=== PATIENT | male | born 1990 | race Two or more races ===

== ENCOUNTER 2019-11-01 09:35 | Inpatient (IN) | payer SELFPAY ==
[~2019-11-01] VITALS: Ht 175.3 cm; Wt 104.7 kg
[2019-11-01] MEDS ORDERED: DOXYCYCLINE 100MG/250ML 250 ML IV ONE (10:30)
[2019-11-01] MEDS ORDERED: DexAMETHasone SOD PHOS 10MG/1ML VIAL INJ IV ONE (10:30)
[2019-11-01 11:25] LABS: Basophils # (auto) 0 10 ^3/uL (0-0.2); Basophils % (auto) 0.2 % (0.0-2.0); Eosinophils # (auto) 0 10 ^3/uL (0-0.8); Eosinophils % (auto) 0.2 % (0.0-7.0); Hematocrit 44.7 % (41.0-53.0); Hemoglobin 14.7 g/dL (13.5-17.5); Lymphocytes # (auto) 1.4 10 ^3/uL (0.4-5.4); Lymphocytes % (auto) 25.7 % (10.0-50.0); Mean Corpuscular Hemoglobin 28.2 pg (28.0-32.0); Mean Corpuscular Hgb Conc. 32.9 g/dL (32.0-36.0); Mean Corpuscular Volume 85.6 fL (80.0-100.0); Monocytes # (auto) 0.7 10 ^3/uL (0-1.3); Monocytes % (auto) 11.8 % (0.0-12.0); Neutrophils # (auto) 3.4 10 ^3/uL (1.6-8.6); Neutrophils % (auto) 62.1 % (37.0-80.0); Nucleated Red Blood Cells % 0.1 %; Platelet Count (auto) 245 10^3/uL (140-450); Red Blood Cells 5.22 10^6/uL (4.5-5.90); Red Cell Distribution Width 13.6 % (11.8-14.3); White Blood Cell 5.5 10^3/uL (4.4-10.8)
[2019-11-01 11:44] LABS: Albumin 3.1 g/dL (3.4-5.0); Calcium 8.6 mg/dL (8.5-10.1)
[2019-11-01 11:47] LABS: BUN/Creatinine Ratio 13.5; Bilirubin, Total 0.7 mg/dL (0.2-1.0); Total Protein 7.1 g/dL (6.4-8.2)
[2019-11-01 11:57] LABS: CRP High Sensitivity 8.28 mg/dL (< 0.3)
[2019-11-01 12:01] LABS: Potassium 2.9 mmol/L (3.5-5.1)
[2019-11-01] MEDS ORDERED: SODIUM CHLORIDE 0.9% 1,000 ML IV SCH (12:47)
[2019-11-01] MEDS ORDERED: NITROGLYCERIN 0.4 MG SL TAB SL PRN (13:00)
[2019-11-01] MEDS ORDERED: HYDROcodone-ACET 5/325MG TAB PO PRN (13:00)
[2019-11-01] MEDS ORDERED: ACETAMINOPHEN 500 MG TAB PO PRN (13:00)
[2019-11-01] MEDS ORDERED: ONDANSETRON HCL 4 MG/2 ML VIAL IV PRN (13:00)
[2019-11-01] MEDS ORDERED: POTASSIUM CHL 20 Meq TABLET PO ONE (13:00)
[2019-11-01] MEDS ORDERED: DOCUSATE SOD 100 MG CAP PO PRN (13:00)
[2019-11-01] MEDS ORDERED: LORazepam 0.5 MG TAB PO PRN (13:00)
[2019-11-01] MEDS ORDERED: ACETAMINOPHEN 325 MG TAB PO PRN ×2 (13:00→17:15)
[2019-11-01] MEDS ORDERED: MORPHINE SULF INJ 2 MG/ML SYRINGE 1ML IV PRN ×2 (13:00)
[2019-11-01 13:23] LABS: Cholesterol 91 mg/dL (< 200)
[2019-11-01 13:27] LABS: HDL Cholesterol 22 mg/dL (40-59); LDL Cholesterol 61 mg/dL (< 100); Triglycerides 127 mg/dL (< 150)
[2019-11-01] MEDS: POTASSIUM CHL 20MEQ/100ML 100 ML IV SCH ×2 (14:00→15:24)
[2019-11-01] MEDS: ALBUTEROL SULF HFA 90MCG INH 200DOSE IN SCH ×2 (15:10→22:00)
[2019-11-01 18:00] VITALS: BP 118/61
[2019-11-01] MEDS ORDERED: POTASSIUM CHL 20MEQ/100ML 100 ML IV ONE (18:00)
[2019-11-01] MEDS: FUROSEMIDE 20 MG/2 ML VIAL IV SCH (18:23)
[2019-11-01 19:29] VITALS: BP 118/61
--- NOTE | 2019-11-01 19:30 | NUR ---
Opening Shift Note Assumed care of patient, awake and alert. No S/S of distress/SOB or pain. Instructed on POC and to call for assist PRN. Bed is in lowest locked position with bed rails up x2 and call light is within reach.
[2019-11-01] MEDS: DOXYCYCLINE 100MG/250ML 250 ML IV SCH (21:55)
[2019-11-01 22:00] VITALS: BP 117/72
[2019-11-02 01:35] LABS: Urine Bacteria NONE SEEN /hpf (None Seen); Urine Blood Negative /uL (Negative); Urine Specific Gravity 1.008 (1.001-1.035); Urine WBC 1 /hpf (0 - 3)
[2019-11-02 01:45] LABS: Alcohol, Urine < 3.0 mg/dL (0-10); Amphetamine Screen, Urine NEGATIVE (NEGATIVE); Barbiturate Scree,Urine NEGATIVE (NEGATIVE); Benzodiazephine Screen, Urine NEGATIVE (NEGATIVE); Cannabinoid Screen, Urine NEGATIVE (NEGATIVE); Cocaine Screen, Urine NEGATIVE (NEGATIVE); Opiate Scree,Urine NEGATIVE (NEGATIVE); Phencyclidine Screen, Urine NEGATIVE (NEGATIVE)
[2019-11-02 05:00] VITALS: BP 119/65
[2019-11-02] MEDS: FUROSEMIDE 20 MG/2 ML VIAL IV SCH ×2 (05:59→17:16)
[2019-11-02 06:56] LABS: Hematocrit 43.2 % (41.0-53.0); Hemoglobin 14.5 g/dL (13.5-17.5); Mean Corpuscular Hemoglobin 28.9 pg (28.0-32.0); Mean Corpuscular Hgb Conc. 33.7 g/dL (32.0-36.0); Mean Corpuscular Volume 85.8 fL (80.0-100.0); Platelet Count (auto) 320 10^3/uL (140-450); Red Blood Cells 5.03 10^6/uL (4.5-5.90); Red Cell Distribution Width 14.2 % (11.8-14.3); White Blood Cell 6.5 10^3/uL (4.4-10.8)
[2019-11-02 06:57] LABS: Albumin 2.8 g/dL (3.4-5.0); Calcium 8.4 mg/dL (8.5-10.1); Potassium 3.6 mmol/L (3.5-5.1)
[2019-11-02 06:59] LABS: BUN/Creatinine Ratio 12.6; Bilirubin, Total 0.5 mg/dL (0.2-1.0)
[2019-11-02 07:02] LABS: Basophils % (manual) 0 (0.0-2.0); Blast Cells 0; Eosinophils % (manual) 0 (0-7); Metamyelocytes % 0; Myelocytes % 0; Promyelocytes % 0; Reactive Lymphocytes 0
[2019-11-02] MEDS: ALBUTEROL SULF HFA 90MCG INH 200DOSE IN SCH ×3 (07:33→21:23)
--- NOTE | 2019-11-02 08:39 | NUR ---
OPENING SHIFT NOTE Resumed care of patient. Patient is awake and A&OX4. PT is on 14L O2 via Oxymizer. No S/S of distress. Bed locked, in lowest position, call light within reach, side rails up x2, bed alarm on for safety. Will continue to monitor for changes Q1hr and PRN.
[2019-11-02 09:00] VITALS: BP 129/80
[2019-11-02 09:09] LABS: Band Neutrophils % (manual) 8; Lymphocytes % (manual) 20 (10.0-50.0); Monocytes % (manual) 13 (0-12)
[2019-11-02] MEDS ORDERED: ENOXAPARIN SOD 40 MG/0.4 ML SYRINGE SC SCH (10:00)
[2019-11-02] MEDS: ZINC SULFATE 220mg CAP or TAB PO SCH (10:14)
[2019-11-02] MEDS: ASCORBIC ACID 1,000 MG TAB PO SCH (10:14)
[2019-11-02] MEDS: DexAMETHasone SOD PHOS 10MG/1ML VIAL INJ IV SCH (10:14)
[2019-11-02] MEDS: DOXYCYCLINE 100MG/250ML 250 ML IV SCH ×2 (10:14→21:38)
[2019-11-02] MEDS: CHOLECALCIFEROL (VITD3) 2,000 UNIT CAP PO SCH (10:14)
[2019-11-02] MEDS: POTASSIUM CHL 20 Meq TABLET PO SCH (10:15)
[2019-11-02 13:09] VITALS: BP 124/76
--- NOTE | 2019-11-02 14:20 | NUR ---
MD SPOKE TO PT REGARDING TREATMENT WITH REMDESIVIR. PT STATED HE HAD FURTHER QUESTIONS. AFTER SPEAKING WITH MD AGAIN, PT DECIDED TO NOT USE REMDESIVIR AT THIS TIME.
[2019-11-02 15:36] LABS: Hemoglobin 15.5 g/dL (13.5-17.5); Mean Corpuscular Hemoglobin 28.3 pg (28.0-32.0); Mean Corpuscular Hgb Conc. 32.9 g/dL (32.0-36.0); Platelet Count (auto) 378 10^3/uL (140-450); Red Blood Cells 5.46 10^6/uL (4.5-5.90); Red Cell Distribution Width 14.3 % (11.8-14.3); White Blood Cell 8.8 10^3/uL (4.4-10.8)
[2019-11-02 15:51] LABS: BUN/Creatinine Ratio 13.6
[2019-11-02 15:59] LABS: Basophils % (manual) 0 (0.0-2.0); Blast Cells 0; Eosinophils % (manual) 0 (0-7); Myelocytes % 0; Promyelocytes % 0; Reactive Lymphocytes 0
--- NOTE | 2019-11-02 16:25 | NUR ---
RT EDUCATED PT ABOUT LAYING PRONE. PT ACKNOWLEDGES. SAID HE WILL LAY IN PRONE POSITION LATER.
[2019-11-02 16:30] LABS: Band Neutrophils % (manual) 9; Lymphocytes % (manual) 16 (10.0-50.0); Metamyelocytes % 1; Monocytes % (manual) 9 (0-12)
[2019-11-02 17:28] VITALS: BP 140/67
[2019-11-02 17:30] VITALS: BP 140/67
[2019-11-02] MEDS: ENOXAPARIN SOD 100 MG/1 ML SYRINGE SC SCH (21:40)
[2019-11-02 22:00] VITALS: BP 116/60
[2019-11-03 05:00] VITALS: BP 118/73
[2019-11-03] MEDS: FUROSEMIDE 20 MG/2 ML VIAL IV SCH ×2 (05:39→18:29)
--- NOTE | 2019-11-03 07:56 | NUR ---
OPENING SHIFT NOTE Resumed care of patient. Patient is awake and A&OX4. PT is on 11L O2 via Oxymizer. No S/S of distress. Bed locked, in lowest position, call light within reach, side rails up x2, bed alarm on for safety. Will continue to monitor for changes Q1hr and PRN.
[2019-11-03] MEDS: ALBUTEROL SULF HFA 90MCG INH 200DOSE IN SCH ×3 (08:00→23:08)
[2019-11-03 09:00] VITALS: BP 117/61
[2019-11-03] MEDS: DOXYCYCLINE 100MG/250ML 250 ML IV SCH ×2 (09:49→22:10)
[2019-11-03] MEDS: ENOXAPARIN SOD 100 MG/1 ML SYRINGE SC SCH ×2 (09:49→22:11)
[2019-11-03] MEDS: DexAMETHasone SOD PHOS 10MG/1ML VIAL INJ IV SCH (09:49)
[2019-11-03] MEDS: CHOLECALCIFEROL (VITD3) 2,000 UNIT CAP PO SCH (09:50)
[2019-11-03] MEDS: POTASSIUM CHL 20 Meq TABLET PO SCH (09:50)
[2019-11-03] MEDS: ZINC SULFATE 220mg CAP or TAB PO SCH (09:50)
[2019-11-03] MEDS: ASCORBIC ACID 1,000 MG TAB PO SCH (09:50)
[2019-11-03 13:00] VITALS: BP 116/55
[2019-11-03 17:23] VITALS: BP 107/58
[2019-11-03 22:21] VITALS: BP 113/57
[2019-11-04 05:00] VITALS: BP 112/62
[2019-11-04] MEDS: FUROSEMIDE 20 MG/2 ML VIAL IV SCH ×2 (06:15→17:55)
[2019-11-04] MEDS: ALBUTEROL SULF HFA 90MCG INH 200DOSE IN SCH ×3 (07:53→23:22)
--- NOTE | 2019-11-04 07:53 | NUR ---
RT NOTE: FLOW TITRATED TO 8L OXYMIZER. SPO2 HOLDING AT 95%. WILL CONTINUE TO MONITOR.
[2019-11-04 07:59] LABS: Basophils # (auto) 0 10 ^3/uL (0-0.2); Basophils % (auto) 0.3 % (0.0-2.0); Eosinophils # (auto) 0 10 ^3/uL (0-0.8); Eosinophils % (auto) 0.3 % (0.0-7.0); Hematocrit 46.1 % (41.0-53.0); Hemoglobin 15.2 g/dL (13.5-17.5); Lymphocytes # (auto) 3.1 10 ^3/uL (0.4-5.4); Lymphocytes % (auto) 25.9 % (10.0-50.0); Mean Corpuscular Hemoglobin 28.4 pg (28.0-32.0); Mean Corpuscular Hgb Conc. 32.9 g/dL (32.0-36.0); Mean Corpuscular Volume 86.2 fL (80.0-100.0); Monocytes % (auto) 8.5 % (0.0-12.0); Neutrophils # (auto) 7.9 10 ^3/uL (1.6-8.6); Nucleated Red Blood Cells % 0.1 %; Platelet Count (auto) 454 10^3/uL (140-450); Red Blood Cells 5.34 10^6/uL (4.5-5.90); Red Cell Distribution Width 14.5 % (11.8-14.3); White Blood Cell 12.1 10^3/uL (4.4-10.8)
[2019-11-04 08:12] LABS: BUN/Creatinine Ratio 18.9; Calcium 8.5 mg/dL (8.5-10.1); Potassium 3.6 mmol/L (3.5-5.1)
[2019-11-04 09:00] VITALS: BP 90/49
[2019-11-04] MEDS: DexAMETHasone SOD PHOS 10MG/1ML VIAL INJ IV SCH (10:35)
[2019-11-04] MEDS: DOXYCYCLINE 100MG/250ML 250 ML IV SCH ×2 (10:35→22:16)
[2019-11-04] MEDS: ZINC SULFATE 220mg CAP or TAB PO SCH (10:36)
[2019-11-04] MEDS: CHOLECALCIFEROL (VITD3) 2,000 UNIT CAP PO SCH (10:36)
[2019-11-04] MEDS: POTASSIUM CHL 20 Meq TABLET PO SCH (10:36)
[2019-11-04] MEDS: ASCORBIC ACID 1,000 MG TAB PO SCH (10:36)
[2019-11-04] MEDS: ENOXAPARIN SOD 100 MG/1 ML SYRINGE SC SCH ×2 (10:36→22:16)
[2019-11-04 13:30] VITALS: BP 95/56
--- NOTE | 2019-11-04 14:33 | NUR ---
Est energy needs [id number] kcal (14-18 kcal/kg BW 107kg) Est protein needs 73-95g (1-1.3g/kg IBW 72.7kg) Will reassess prn. Addendum: 11/04/19 at [address] Amended: Links added.
[2019-11-04 17:12] VITALS: BP 101/53
--- NOTE | 2019-11-04 20:50 | NUR ---
Patient was satting at 95% on 4L NC. He was titrated down to 2L NC. Currently at 93%. Will continue to monitor.
[2019-11-04 22:00] VITALS: BP 110/57
--- NOTE | 2019-11-04 22:37 | NUR ---
Paged hospitalist to try and obtain rapid covid test. Awaiting callback.
--- NOTE | 2019-11-05 00:19 | NUR ---
Paged hospitalist again. Awaiting callback.
--- NOTE | 2019-11-05 00:49 | NUR ---
Hospitalist called and said no to the emily antigen test but agreed to have the novel coronavirus testing. Will place appropriate order.
[2019-11-05 02:07] VITALS: BP 110/57
[2019-11-05 05:00] VITALS: BP 124/73
[2019-11-05] MEDS: FUROSEMIDE 20 MG/2 ML VIAL IV SCH ×2 (06:42→18:38)
[2019-11-05] MEDS: ALBUTEROL SULF HFA 90MCG INH 200DOSE IN SCH ×3 (07:33→23:13)
[2019-11-05 08:18] LABS: Mean Corpuscular Hemoglobin 28.2 pg (28.0-32.0); Mean Corpuscular Volume 86.9 fL (80.0-100.0)
[2019-11-05 08:19] LABS: Hematocrit 47.3 % (41.0-53.0); Hemoglobin 15.3 g/dL (13.5-17.5); Mean Corpuscular Hgb Conc. 32.4 g/dL (32.0-36.0); Platelet Count (auto) 510 10^3/uL (140-450); Red Blood Cells 5.45 10^6/uL (4.5-5.90); Red Cell Distribution Width 14.1 % (11.8-14.3); White Blood Cell 13.1 10^3/uL (4.4-10.8)
[2019-11-05 08:22] LABS: Basophils % (manual) 0 (0.0-2.0); Blast Cells 0; Eosinophils % (manual) 0 (0-7); Promyelocytes % 0; Reactive Lymphocytes 0
[2019-11-05 08:25] LABS: Albumin 3.1 g/dL (3.4-5.0); Calcium 8.6 mg/dL (8.5-10.1); Potassium 3.5 mmol/L (3.5-5.1)
[2019-11-05 08:29] LABS: BUN/Creatinine Ratio 18.4; Bilirubin, Total 0.7 mg/dL (0.2-1.0); Total Protein 7.4 g/dL (6.4-8.2)
[2019-11-05 09:00] VITALS: BP 103/62
[2019-11-05] MEDS: DexAMETHasone SOD PHOS 10MG/1ML VIAL INJ IV SCH (09:49)
[2019-11-05] MEDS: ZINC SULFATE 220mg CAP or TAB PO SCH (09:49)
[2019-11-05] MEDS: DOXYCYCLINE 100MG/250ML 250 ML IV SCH ×2 (09:49→21:20)
[2019-11-05] MEDS: ASCORBIC ACID 1,000 MG TAB PO SCH (09:49)
[2019-11-05] MEDS: CHOLECALCIFEROL (VITD3) 2,000 UNIT CAP PO SCH (09:50)
[2019-11-05] MEDS: ENOXAPARIN SOD 100 MG/1 ML SYRINGE SC SCH (09:50)
[2019-11-05] MEDS: POTASSIUM CHL 20 Meq TABLET PO SCH (09:50)
[2019-11-05 11:41] LABS: Band Neutrophils % (manual) 7; Lymphocytes % (manual) 33 (10.0-50.0); Metamyelocytes % 4; Monocytes % (manual) 8 (0-12); Myelocytes % 1
[2019-11-05 13:00] VITALS: BP 107/68
[2019-11-05] MEDS ORDERED: ENOXAPARIN SOD 40 MG/0.4 ML SYRINGE SC ONE (15:00)
[2019-11-05 17:00] VITALS: BP 129/81
--- NOTE | 2019-11-05 21:00 | NUR ---
PT TAKEN OFF O2 AT THIS TIME. O2 SATS REMAIN IN THE MID 90S. WILL CONTINUE TO MONITOR.
[2019-11-05 22:00] VITALS: BP 107/62
[2019-11-06 04:51] VITALS: BP 105/60
[2019-11-06] MEDS: FUROSEMIDE 20 MG/2 ML VIAL IV SCH (05:36)
[2019-11-06] MEDS: ALBUTEROL SULF HFA 90MCG INH 200DOSE IN SCH (07:10)
[2019-11-06] MEDS: DexAMETHasone SOD PHOS 10MG/1ML VIAL INJ IV SCH (08:53)
[2019-11-06] MEDS: POTASSIUM CHL 20 Meq TABLET PO SCH (08:54)
[2019-11-06] MEDS: DOXYCYCLINE 100MG/250ML 250 ML IV SCH (08:54)
[2019-11-06] MEDS: ASCORBIC ACID 1,000 MG TAB PO SCH (08:55)
[2019-11-06] MEDS: ZINC SULFATE 220mg CAP or TAB PO SCH (08:55)
[2019-11-06] MEDS: CHOLECALCIFEROL (VITD3) 2,000 UNIT CAP PO SCH (08:55)
[2019-11-06 09:00] VITALS: BP 104/58
[2019-11-06] MEDS ORDERED: DOXY-286 PO (11:11)
[2019-11-06] MEDS ORDERED: DEX4T PO (11:11)
[2019-11-06] MEDS ORDERED: ASCO10003 PO (11:11)
[2019-11-06] MEDS ORDERED: CHOL1CAP47 PO (11:11)
[2019-11-06 13:00] VITALS: BP 104/74
[2019-11-06 13:24] VITALS: BP 105/60
--- NOTE | 2019-11-06 13:57 | NUR ---
PATIENT EDUCATED ON DISCHARGE INSTRUCTIONS AND FOLLOW UP APPOINTMENT. PATIENT VERBALIZED UNDERSTANDING. PATIENT GIVEN PRESCRIPTIONS FROM THE [facility]
== END 2019-11-06 14:20 | disposition home or self-care (01) | DRG 177 ==
LOC: ER 09:35 → TELE 09:36 → TELE-EAST 17:00
PROVIDERS: ADMIT Hospitalist; ATTEND Internal Medicine Pulmonary Disease
DX: U07.1 COVID-19 (principal); J12.89 Other viral pneumonia; E44.1 Mild protein-calorie malnutrition; E87.1 Hypo-osmolality and hyponatremia; E66.01 Morbid (severe) obesity due to excess calories; E87.6 Hypokalemia; K75.9 Inflammatory liver disease, unspecified; K76.0 Fatty (change of) liver, not elsewhere classified; Z68.34 Body mass index [BMI] 34.0-34.9, adult
CPT/HCPCS: 36415; 71045; 80048; 80053; 80061; 80307; 81001; 82728; 83036; 83605; 83615; 83735; 83880; 84443; 84484; 85007; 85025; 85027; 85379; 86141; 87040; 87086; 93005; 93970; 94640; 96365; 96367; 96375; G0378; J1100; J3480; J3490

== ENCOUNTER 2020-07-26 22:32 | Emergency (ER) | payer SELFPAY ==
[~2020-07-26] VITALS: Ht 175.3 cm; Wt 122.5 kg
[~2020-07-26 22:32] MED LIST: ASCO10003 PO; CHOL1CAP47 PO; DEX4T PO; DOXY-286 PO
[2020-07-26 22:45] VITALS: BP 141/67
[2020-07-27] MEDS ORDERED: ONDANSETRON ODT 4 MG TAB PO ONE (01:30)
[2020-07-27] MEDS ORDERED: HYDROcodone-ACET 10/325MG TAB PO ONE (01:30)
== END 2020-07-27 02:56 | disposition home or self-care (01) ==
LOC: ER 22:44
DX: S62.307A Unspecified fracture of fifth metacarpal bone, left hand, initial encounter for closed fracture (principal); S62.306A Unspecified fracture of fifth metacarpal bone, right hand, initial encounter for closed fracture; S63.502A Unspecified sprain of left wrist, initial encounter; Z79.2 Long term (current) use of antibiotics; V87.8XXA Person injured in other specified noncollision transport accidents involving motor vehicle (traffic), initial encounter; Y93.89 Activity, other specified; Y92.89 Other specified places as the place of occurrence of the external cause; Y99.8 Other external cause status
CPT/HCPCS: 29125; 73110; 73130; 99284; Q0162